=== PATIENT | male | born 1975 | race Two or more races ===

== ENCOUNTER 2024-02-18 12:36 | Emergency (ER) | payer SELFPAY ==
[2024-02-18 13:45] VITALS: BP 119/74; PULSE 95; RESP 18; TEMP 98.2; BMI 35.5
[2024-02-18] MEDS ORDERED: METOCLOPRAMIDE HCL INJECTION 10 MG/2 ML VIAL ONE (13:57)
[2024-02-18] MEDS: SODIUM CHLORIDE 0.9% 500 ML INFUS.BAG IV ONE (14:27)
[2024-02-18] MEDS: METOCLOPRAMIDE HCL INJECTION 10 MG/2 ML VIAL IVPB ONE (14:28)
[2024-02-18 14:35] LABS: BASO % 0.3 % (0-2.0); EOS % 0.3 % (0-4.5); HEMATOCRIT 48.6 % (35.4-49); HEMOGLOBIN 16.5 GM/dL (11.7-16.9); LYMPH % 22.7 % (8-40); MCH 30.2 pg (25.7-33.7); MCHC 33.9 g/dl (32.0-35.9); MEAN CELL VOLUME 89.1 fl (80-96); MEAN PLT VOLUME 8.3 fl (7.5-11.1); MONO % 6.5 % (3.8-10.2); NEUT % 70.2 % (42.8-82.8); PLATELET COUNT 293 10^3/uL (134-434); RBC 5.46 M/mm3 (4.00-5.60); RDW 12.9 % (11.9-15.9); WHITE BLOOD COUNT 8.3 K/mm3 (4.0-10.0)
[2024-02-18 14:50] LABS: POTASSIUM 3.9 mmol/L (3.5-5.1)
[2024-02-18 14:53] LABS: ALBUMIN 4.3 g/dl (3.4-5.0); CALCIUM 9.4 mg/dL (8.5-10.1); MAGNESIUM 2.5 mg/dL (1.8-2.4)
[2024-02-18 14:54] LABS: BLOOD UREA NITROGEN 11.1 mg/dL (7-18)
[2024-02-18 14:56] LABS: CREATININE 0.7 mg/dL (0.55-1.3)
[2024-02-18 14:57] LABS: BILIRUBIN,TOTAL 0.8 mg/dL (0.2-1); TOT PROT 8.1 g/dl (6.4-8.2)
== END 2024-02-18 19:06 | disposition home or self-care (01) ==
LOC: JER 12:36
PROC: 3E033GC Introduction of Other Therapeutic Substance into Peripheral Vein, Percutaneous Approach (ICD-10-PCS; principal; 2024-02-18)
DX: R42 Dizziness and giddiness (principal); R11.2 Nausea with vomiting, unspecified; R53.1 Weakness; Z20.822 Contact with and (suspected) exposure to COVID-19
CPT/HCPCS: 0241U-QW; 36415; 70450-TC; 70496-TC; 70498-TC; 71046-TC-FY; 80053; 83735; 84484; 85025; 93005; 93010; 99284-25